=== PATIENT | female | born 1990 | race Caucasian/White ===

== ENCOUNTER 2021-08-10 18:34 | Emergency (ER) | payer SELFPAY ==
[~2021-08-10] VITALS: Ht 160 cm; Wt 60.6 kg
[2021-08-10 18:45] VITALS: BP 113/60
[2021-08-10] MEDS ORDERED: AMOX875T PO (18:57)
--- NOTE | 2021-08-10 18:57 | PHYS DOC ---
Past History Past Surgical History: Other Additional Past Surgical Histo: right ovary (NATALIE OTTO APRN) Alcohol Use: Occasionally (NATALIE OTTO APRN) General Adult EDM: Chief Complaint: HEADACHE HPI: HPI: Patient is a 30-year-old female who presents to the emergency department for left ear pain that has been intermittent for 3 weeks. She reports that the pain is gotten worse with making her have a headache. She rates it 8 out of 10. She has been taking Tylenol at home. She has not been on any antibiotics recently. She denies nausea, vomiting, photophobia, headache, cough, fevers. (NATALIE OTTO APRN) Review of Systems: Review of Systems: 14 body systems of the review of systems have been reviewed. See HPI for pertinent positive and negative responses, otherwise all other systems are negative, nonpertinent or noncontributory (NATALIE OTTO APRN) Allergies: Allergies: Allergies Coded Allergies Type Severity Reaction Last Updated Verified cephalexin Allergy Unknown Hives 08/10/21 Yes (NATALIE OTTO APRN) Physical Exam: PE: Constitutional: Well developed, well nourished, no acute distress, non-toxic appearance. [] HENT: Normocephalic, atraumatic, bilateral external ears normal, erythema noted to left ear canal with fluid behind tympanic membrane, oropharynx moist, no oral exudates, nose normal. [] Eyes: PERRL, EOMI, conjunctiva normal, no discharge. [] Neck: Normal range of motion, no tenderness, no cervical lymphadenopathy, supple, no stridor. [] Cardiovascular:Heart rate regular rhythm, no murmur [] Lungs & Thorax: Bilateral breath sounds clear to auscultation [] Abdomen: Bowel sounds normal, soft, no tenderness, no masses, no pulsatile masses. [] Skin: Warm, dry, no erythema, no rash. [] Back: Normal range of motion Extremities: No tenderness, no cyanosis, no clubbing, ROM intact, no edema. [] Neurologic: Alert and oriented X 3, normal motor function, normal sensory function, no focal deficits noted. [] Psychologic: Affect normal, judgement normal, mood normal. [] (NATALIE OTTO APRN) Current Patient Data: Vital Signs: Vital Signs Date Time Temp Pulse Resp B/P (MAP) Pulse Ox O2 Delivery O2 Flow Rate FiO2 08/10/21 18:45 98.5 77 18 113/60 (77) 97 Room Air (NATALIE OTTO APRN) EKG: EKG: [] (NATALIE OTTO APRN) Radiology/Procedures: Radiology/Procedures: [] (NATALIE OTTO APRN) Heart Score: C/O Chest Pain: N/A Risk Factors: Risk Factors: DM, Current or recent (<one month) smoker, HTN, HLP, family history of CAD, obesity. Risk Scores: Score 0 - 3: 2.5% MACE over next 6 weeks - Discharge Home Score 4 - 6: 20.3% MACE over next 6 weeks - Admit for Clinical Observation Score 7 - 10: 72.7% MACE over next 6 weeks - Early Invasive Strategies (NATALIE OTTO APRN) Course & Med Decision Making: Course & Med Decision Making Pertinent Labs and Imaging studies reviewed. (See chart for details) [] Patient presents to the emergency department for left-sided ear pain. Upon physical exam, it appears the patient has a left-sided ear infection with effusion. Patient be treated with antibiotic. She has not been on antibiotic recently therefore we treated with amoxicillin 875. Patient reports that she tolerates penicillins. Patient advised to take Tylenol or ibuprofen at home for the pain. I discussed with patient all findings and diagnostic testing as well as the need to follow-up with PCP for further evaluation and treatment or return to the ER if any new or worsening symptoms. Strict return precautions were also discussed at length. Patient voiced understanding and agreement with the plan. Patient is hemodynamically stable at the time of disposition. (NATALIE OTTO APRN) Dragon Disclaimer: Dragon Disclaimer: This electronic medical record was generated, in whole or in part, using a voice recognition dictation system. (NATALIE OTTO APRN) Departure Departure: Impression: Primary Impression: Otitis media Qualified Codes: H66.90 - Otitis media, unspecified, unspecified ear Disposition: HOME / SELF CARE / HOMELESS Condition: GOOD Referrals: PCP,NO (PCP) Patient Instructions: Otitis Media with Effusion Additional Instructions: You were seen in the emergency department for left-sided ear pain. It appears that you have an ear infection. Please take the antibiotic as directed, make sure you start and finish it completely. You can take Tylenol or ibuprofen for pain at home. You can try taking a daily Zyrtec that may help dry up the fluid and help with your seasonal allergy symptoms. Please follow-up with your primary care provider tomorrow regarding your ER visit. Return to the emergency department if you develop worsening of your pain, hearing loss, intractable nausea or vomiting, high fevers refractory to treatment or any new or worsening concerns. EMERGENCY DEPARTMENT GENERAL DISCHARGE INSTRUCTIONS Thank you for coming to [facility] (ED) today and trusting us with you care. We trust that you had a positivie experience in our Emergency Department. If you wish to speak to the department management, you may call the director at [phone]. YOUR FOLLOW UP INSTRUCTIONS ARE FOLLOWS: 1. Do you have a private Doctor? If you do not have a private doctor, please ask for a resource list of physicians or clinics that may be able to assist you with follow up care. 2. The Emergency Physician has interpreted your x-rays. The X-Ray specialist will also review them. If there is a change in the findings, you will be notified in 48 hours when at all possible. 3. A lab test or culture has been done, your results will be reviewed and you will be notified if you need a change in treatment. ADDITIONAL INSTRUCTIONS AND INFORMATION: 1. Your care today has been supervised by a physician who is specially trained in emergency care. Many problems require more than one evaluation for a complete diagnosis and treatment. We recommend that you schedule your follow up appointment as recommended to ensure complete treatment of you illness or injury. If you are unable to obtain follow up care and continue to have a problem, or if your condition worsens, we recommend that you return to the ED. 2. We are not able to safely determine your condition over the phone nor are we able to give sound medical advice over the phone. For these safety reasons, if you call for medical advice we will ask you to come to the ED for further evaluation. 3. If you have any questions regarding these discharge instructions please call the ED at [phone]. SAFETY INFORMATION: In the interest of safety, wellness, and injury prevention; we encourage you to wear your sealbelt, if you smoke; quite smoking, and we encourage family to use a protective helmet for bicycling and other sporting events that present an increased risk for head injury. IF YOUR SYMPTOMS WORSEN OR NEW SYMPTOMS DEVELOP, OR YOU HAVE CONCERNS ABOUT YOUR CONDITION; OR IF YOUR CONDITION WORSENS WHILE YOU ARE WAITING FOR YOUR FOLLOW UP APPOINTMENT; EITHER CONTACT YOUR PRIMARY CARE DOCTOR, THE PHYSICIAN WHOSE NAME AND NUMBER YOU WERE GIVEN, OR RETURN TO THE ED IMMEDIATELY. Scripts Amoxicillin (AMOXICILLIN) 875 Mg Tablet 1 TAB PO BID for otitis media for 5 Days, #10 TAB 0 Refills Prov: NATALIE OTTO APRN 08/10/21 Attending Signature Attending Signature I have reviewed the PA/MORTGAGE BROKER's note and plan of care. I was available for consultation as needed during the patient's visit in the emergency department. I agree with the clinical impression, plan, and disposition. (FERMIN HILL DO) NATALIE OTTO APRN Aug 10, 2021 18:57 FERMIN HILL DO Aug 11, 2021 01:39
[2021-08-10] MEDS: AMOXICILLIN 250 MG CAPSULE PO ONE (19:00)
== END 2021-08-10 19:08 | disposition home or self-care (01) ==
LOC: ER 18:34
DX: H66.92 Otitis media, unspecified, left ear (principal)
CPT/HCPCS: 99283